=== PATIENT | female | born 1975 | race Caucasian/White ===

== ENCOUNTER 2016-06-30 10:37 | Emergency (ER) | payer OTHER ==
[~2016-06-30] VITALS: Ht 172.7 cm; Wt 121.1 kg
[~2016-06-30 10:37] MED LIST: /ONDA4TA; PRENATAL VITAMIN; TYLENOL #3
[2016-06-30] MEDS ORDERED: OMEP40CA2 PO (11:02)
[2016-06-30] MEDS ORDERED: methylPREDNISolone INJ 125 MG/2 ML VIAL (J2930) IM ONE (11:45)
[2016-06-30] MEDS ORDERED: VALI5TAB PO (12:11)
[2016-06-30] MEDS ORDERED: PRED20TA PO (12:11)
[2016-06-30 12:33] VITALS: BP 118/69
== END 2016-06-30 12:46 | disposition home or self-care (01) ==
LOC: M ED 11:17
DX: M54.12 Radiculopathy, cervical region (principal)
CPT/HCPCS: 96372; 99282; J2930; J3360

== ENCOUNTER → 2016-09-04 | Outpatient (REF) | payer OTHER ==
[~2016-09-04] MED LIST changes: +OMEP40CA2 PO; +PRED20TA PO; +VALI5TAB PO
== END ==
LOC: M SFHCPLAZ 10:47
PROVIDERS: ATTEND Physician Assistant Medical
DX: E55.9 Vitamin D deficiency, unspecified (principal)

== ENCOUNTER → 2016-09-12 | Outpatient (REF) | payer OTHER ==
[2016-09-12 12:27] LABS: BASO % 0.5 % (0.0-1.0); EOS # 0.4 K/mm3 (0.0-0.50); EOS % 4.2 % (0.0-3.0); LARGE UNSTAINED CELL # 0.1 K/mm3 (0.0-0.4); LARGE UNSTAINED CELL % 1.5 % (0.0-4.0); LYMPH # 1.9 K/mm3 (1.5-4.5); LYMPH % 20.5 % (24.0-44.0); MEAN CORPUSCULAR HGB CONC 30.8 g/dl (32.0-36.5); MEAN CORPUSCULAR VOLUME 87.6 fl (80.0-96.0); MONO # 0.5 K/mm3 (0.0-0.8); MONO % 5.7 % (0.0-5.0); NEUTROPHILS # 6.2 K/mm3 (1.8-7.7); NEUTROPHILS % 67.6 % (36.0-66.0); PLATELET COUNT, AUTOMATED 332 k/mm3 (150-450); RED CELL DISTRIBUTION WIDTH 14.9 % (11.5-14.5); WHITE BLOOD COUNT 9.2 K/mm3 (4.0-10.0)
[2016-09-12 12:53] LABS: ALBUMIN 3.4 GM/DL (3.2-5.2); ALBUMIN/GLOBULIN RATIO 1.17 (1.00-1.93); ALKALINE PHOSPHATASE 76 U/L (45-117); ALT/SGPT 25 U/L (12-78); ANION GAP 7 MEQ/L (8-16); AST/SGOT 16 U/L (15-37); BILIRUBIN,TOTAL 0.3 MG/DL (0.2-1.0); BLOOD UREA NITROGEN 12 MG/DL (7-18); CALCIUM LEVEL 8.8 MG/DL (8.5-10.1); CARBON DIOXIDE LEVEL 26 MEQ/L (21-32); CHLORIDE LEVEL 108 MEQ/L (98-107); CHOLESTEROL LEVEL 190 MG/DL (<200); CREATININE FOR GFR 0.77 MG/DL (0.55-1.02); FREE T4 0.85 NG/DL (0.76-1.46); GLOMERULAR FILTRATION RATE > 60.0 (>60); GLUCOSE, FASTING 84 MG/DL (70-105); POTASSIUM SERUM 4.2 MEQ/L (3.5-5.1); SODIUM LEVEL 141 MEQ/L (136-145); TOTAL PROTEIN 6.3 GM/DL (6.4-8.2); TRIGLYCERIDES LEVEL 117 MG/DL (<150)
== END ==
LOC: M SFHCPLAZ 10:22
PROVIDERS: ATTEND Nurse Practitioner Family
DX: Z00.00 Encounter for general adult medical examination without abnormal findings (principal); E66.9 Obesity, unspecified; Z13.220 Encounter for screening for lipoid disorders; E55.9 Vitamin D deficiency, unspecified

== ENCOUNTER → 2016-10-17 | Outpatient (REF) | payer OTHER ==
[2016-10-17 16:08] LABS: PERCENT SATURATION 9.9 % (13.2-37.4)
[2016-10-17 16:13] LABS: BASO % 0.3 % (0.0-1.0); EOS # 0.3 K/mm3 (0.0-0.50); EOS % 3.2 % (0.0-3.0); LARGE UNSTAINED CELL # 0.2 K/mm3 (0.0-0.4); LARGE UNSTAINED CELL % 1.8 % (0.0-4.0); LYMPH % 21.4 % (24.0-44.0); MEAN CORPUSCULAR HEMOGLOBIN 26.9 pg (27.0-33.0); MEAN CORPUSCULAR HGB CONC 30.3 g/dl (32.0-36.5); MEAN CORPUSCULAR VOLUME 88.6 fl (80.0-96.0); MONO # 0.5 K/mm3 (0.0-0.8); MONO % 5.5 % (0.0-5.0); NEUTROPHILS # 6.2 K/mm3 (1.8-7.7); NEUTROPHILS % 67.8 % (36.0-66.0); PLATELET COUNT, AUTOMATED 339 k/mm3 (150-450); WHITE BLOOD COUNT 9.2 K/mm3 (4.0-10.0)
== END ==
LOC: M SFHCPLAZ 11:01
PROVIDERS: ATTEND Nurse Practitioner Family
DX: D64.9 Anemia, unspecified (principal)

== ENCOUNTER → 2016-11-21 | Outpatient (REF) | payer OTHER ==
[2016-11-27 00:06] LABS: URINE NICOTINE LEVEL None Detected (.)
== END ==
LOC: M LAB REF 15:38
PROVIDERS: ATTEND Surgery
DX: F17.210 Nicotine dependence, cigarettes, uncomplicated (principal)

== ENCOUNTER → 2016-12-03 | Outpatient (REF) | payer OTHER | LOC: M SFHCWAGY 11:37 | PROVIDERS: ATTEND Nurse Practitioner Family | DX: A49.9 Bacterial infection, unspecified (principal) ==

== ENCOUNTER → 2016-12-13 | Outpatient (CLI) | payer OTHER ==
--- NOTE | 2016-12-14 14:29 | REP ---
Clinical: Menorrhagia. Technique: Transabdominal pelvic ultrasound followed by transvaginal examination for better evaluation of the endometrium and adnexa. Findings: Bladder is unremarkable and measures 7.2 x 4.8 x 4.1 cm. Heterogeneous, anteverted myomatous uterus measures 10.8 x 5.9 x 6.3 cm. The endometrial complex measures 12.5 mm thickness with Nabothian cysts measuring up to 12 mm. Anterior intramural fibroid measures 1.5 x 1.1 x 1.7 cm. Left anterior subserosal fibroid measures 2.8 x 2.2 x 3.5 cm. Two posterior intramural fibroids measure approximately 1.0 x 1.0 x 1.0 cm each. Posterior fundal intramural fibroid measures 2.7 x 1.3 x 2.5 cm. Bilateral ovaries are normal in appearance. Right ovary measures 2.6 x 2.1 x 2.9 cm. Left ovary measures 2.6 x 2.3 x 3.0 cm. No pelvic fluid or adnexal mass lesions. Impression: Heterogeneous myomatous uterus with multiple fibroids as described above measuring up to 3.5 cm as well as Nabothian cysts in the cervical region measuring up to 12 mm. Signed by Paco Gifford MD 12/13/2016 09:43 P
== END ==
LOC: M WHC 12:48
PROVIDERS: ATTEND Nurse Practitioner Family
DX: D25.9 Leiomyoma of uterus, unspecified (principal)

== ENCOUNTER → 2017-05-15 | Outpatient (CLI) | payer OTHER ==
[2017-05-15 12:04] LABS: BASO % 0.5 % (0.0-1.0); EOS # 0.4 10^3/uL (0.0-0.50); EOS % 4.9 % (0.0-3.0); HEMATOCRIT 36.7 % (36.0-47.0); HEMOGLOBIN 11.7 g/dl (12.0-16.0); IMMATURE GRANULOCYTE % 0.4 % (0-0); LYMPH # 2.1 10^3/uL (1.5-4.5); LYMPH % 27.7 % (24.0-44.0); MEAN CORPUSCULAR HEMOGLOBIN 29.8 pg (27.0-33.0); MEAN CORPUSCULAR HGB CONC 31.9 g/dl (32.0-36.5); MEAN CORPUSCULAR VOLUME 93.6 fl (80.0-96.0); MONO # 0.5 10^3/uL (0.0-0.8); MONO % 6.7 % (0.0-5.0); NEUTROPHILS # 4.5 10^3/uL (1.8-7.7); NEUTROPHILS % 59.8 % (36.0-66.0); PLATELET COUNT, AUTOMATED 404 10^3/uL (150-450); RED BLOOD COUNT 3.92 10^6/uL (4.00-5.40); RED CELL DISTRIBUTION WIDTH 13.3 % (11.5-14.5); WHITE BLOOD COUNT 7.5 10^3/uL (4.0-10.0)
[2017-05-15 12:07] LABS: HEMATOCRIT 36.7 % (36.0-47.0)
[2017-05-15 12:32] LABS: ALBUMIN 3.9 GM/DL (3.2-5.2); ALKALINE PHOSPHATASE 69 U/L (45-117); ALT/SGPT 28 U/L (12-78); ANION GAP 7 MEQ/L (8-16); AST/SGOT 22 U/L (7-37); BILIRUBIN,TOTAL 0.2 MG/DL (0.2-1.0); BLOOD UREA NITROGEN 8 MG/DL (7-18); CARBON DIOXIDE LEVEL 25 MEQ/L (21-32); CHLORIDE LEVEL 109 MEQ/L (98-107); CREATININE FOR GFR 0.78 MG/DL (0.55-1.30); FERRITIN 34 NG/ML (8-252); GLOMERULAR FILTRATION RATE > 60.0 (>58); GLUCOSE, FASTING 79 MG/DL (70-100); IRON (FE) 85 UG/DL (50-170); MAGNESIUM LEVEL 2.3 MG/DL (1.8-2.4); PERCENT SATURATION 24.4 % (13.2-45.0); POTASSIUM SERUM 4.3 MEQ/L (3.5-5.1); SODIUM LEVEL 141 MEQ/L (136-145); TOTAL IRON BINDING CAPACITY 348 UG/DL (250-450); TOTAL PROTEIN 6.9 GM/DL (6.4-8.2)
[2017-05-15 12:35] LABS: TOTAL 25(OH) VITAMIN D 17.7 NG/ML (30.0-100.0); VITAMIN B12 LEVEL 607 PG/ML (247-911)
[2017-05-15 12:49] LABS: ESTIMATED AVERAGE GLUCOSE 97 MG/DL (60-110)
[2017-05-17 12:50] LABS: PRETREATED FOLATE FOR RBCFOL 13.4 NG/ML; RBC FOLATE 766.8 NG/ML (280-791)
== END ==
LOC: M LAB 10:52
DX: K91.2 Postsurgical malabsorption, not elsewhere classified (principal); Z98.84 Bariatric surgery status
CPT/HCPCS: 83550

== ENCOUNTER 2017-08-10 03:16 | Emergency (ER) | payer OTHER ==
[2017-08-10] MEDS: ONDANSETRON 4MG/2ML VIAL (J2405) IV (05:09)
[2017-08-10] MEDS: NS 1,000 ML IV (05:09)
[2017-08-10] MEDS: MORPHINE 4 MG/ML 1ML VIAL/SYRINGE (J2270) IV ×3 (05:10→08:45)
[2017-08-10 05:13] LABS: BASO % 0.5 % (0.0-1.0); EOS # 0.3 10^3/uL (0.0-0.50); EOS % 4.2 % (0.0-3.0); HEMATOCRIT 36.5 % (36.0-47.0); HEMOGLOBIN 11.9 g/dl (12.0-15.5); IMMATURE GRANULOCYTE % 0.4 % (0-3.0); LYMPH # 2.5 10^3/uL (1.5-4.5); LYMPH % 31.2 % (24.0-44.0); MEAN CORPUSCULAR HEMOGLOBIN 29.3 pg (27.0-33.0); MEAN CORPUSCULAR HGB CONC 32.6 g/dl (32.0-36.5); MEAN CORPUSCULAR VOLUME 89.9 fl (80.0-96.0); MONO # 0.5 10^3/uL (0.0-0.8); MONO % 6.6 % (0.0-5.0); NEUTROPHILS # 4.7 10^3/uL (1.8-7.7); NEUTROPHILS % 57.1 % (36.0-66.0); PLATELET COUNT, AUTOMATED 254 10^3/uL (150-450); RED BLOOD COUNT 4.06 10^6/uL (4.00-5.40); RED CELL DISTRIBUTION WIDTH 14.6 % (11.5-14.5); WHITE BLOOD COUNT 8.2 10^3/uL (4.0-10.0)
[2017-08-10 05:23] LABS: CALCIUM OXALATE CRYSTALS RFX LARGE; CONTROL LINE HCG INT CTR LINE PRESENT; HCG, SERUM QUALITATIVE NEGATIVE (NEGATIVE); KETONE, URINE AUTO RFX 1+ mg/dL (NEGATIVE); LEUKOCYTE ESTERASE UR AUTO RFX 1+ (NEGATIVE); MUCUS, URINE RFX LARGE (NEGATIVE); NITRITE, URINE AUTO RFX NEGATIVE (NEGATIVE); RBC, URINE AUTO RFX 6 /HPF (0-3); SQUAM EPITHELIAL CELL UR AURFX 13 /HPF (0-6); WBC, URINE AUTO RFX 8 /HPF (0-3)
[2017-08-10 05:33] LABS: ALBUMIN 3.7 GM/DL (3.2-5.2); ALBUMIN/GLOBULIN RATIO 1.37 (1.00-1.93); ALKALINE PHOSPHATASE 56 U/L (45-117); ALT/SGPT 16 U/L (12-78); ANION GAP 7 MEQ/L (8-16); AST/SGOT 10 U/L (7-37); BILIRUBIN,DIRECT 0.1 MG/DL (0.0-0.2); BILIRUBIN,TOTAL 0.4 MG/DL (0.2-1.0); BLOOD UREA NITROGEN 10 MG/DL (7-18); CALCIUM LEVEL 8.8 MG/DL (8.5-10.1); CARBON DIOXIDE LEVEL 24 MEQ/L (21-32); CHLORIDE LEVEL 112 MEQ/L (98-107); CREATININE FOR GFR 0.69 MG/DL (0.55-1.30); GLOMERULAR FILTRATION RATE > 60.0 (>58); GLUCOSE, FASTING 84 MG/DL (70-100); LIPASE 107 U/L (73-393); SODIUM LEVEL 143 MEQ/L (136-145); TOTAL PROTEIN 6.4 GM/DL (6.4-8.2)
[2017-08-10] MEDS ORDERED: GASTROGRAFIN SOLUTION 30ML (Q9963) As Ordered (07:25)
[2017-08-10] MEDS: GASTROGRAFIN SOLUTION 30ML PO ×2 (07:30→08:00)
[2017-08-10] MEDS ORDERED: ISOVUE-370 76% 100ML VIAL (Q9967) As Ordered (08:15)
== END 2017-08-10 11:01 | disposition home or self-care (01) ==
LOC: M ED 03:16
DX: R10.9 Unspecified abdominal pain (principal); G62.9 Polyneuropathy, unspecified; Z98.84 Bariatric surgery status; Z79.899 Other long term (current) drug therapy; Z88.0 Allergy status to penicillin
CPT/HCPCS: J2270

== ENCOUNTER 2017-09-17 09:08 | Emergency (ER) | payer OTHER ==
[2017-09-17] MEDS: MORPHINE 4 MG/ML 1ML VIAL/SYRINGE (J2270) IV (09:57)
[2017-09-17] MEDS: METOCLOPRAMIDE INJ 10MG/2ML VIAL (J2765) IV (09:57)
[2017-09-17] MEDS: NS 1,000 ML IV (09:57)
[2017-09-17 10:18] LABS: BASO % 0.4 % (0.0-1.0); EOS # 0.2 10^3/uL (0.0-0.50); EOS % 2.4 % (0.0-3.0); HEMATOCRIT 37.5 % (36.0-47.0); HEMOGLOBIN 12.4 g/dl (12.0-15.5); IMMATURE GRANULOCYTE % 0.1 % (0-3.0); LYMPH % 26.9 % (24.0-44.0); MEAN CORPUSCULAR HEMOGLOBIN 30.2 pg (27.0-33.0); MEAN CORPUSCULAR HGB CONC 33.1 g/dl (32.0-36.5); MEAN CORPUSCULAR VOLUME 91.2 fl (80.0-96.0); MONO # 0.5 10^3/uL (0.0-0.8); MONO % 7.1 % (0.0-5.0); NEUTROPHILS # 4.8 10^3/uL (1.8-7.7); NEUTROPHILS % 63.1 % (36.0-66.0); PLATELET COUNT, AUTOMATED 279 10^3/uL (150-450); RED BLOOD COUNT 4.11 10^6/uL (4.00-5.40); RED CELL DISTRIBUTION WIDTH 15.1 % (11.5-14.5); WHITE BLOOD COUNT 7.6 10^3/uL (4.0-10.0)
[2017-09-17 10:33] LABS: ALBUMIN 3.7 GM/DL (3.2-5.2); ALBUMIN/GLOBULIN RATIO 1.16 (1.00-1.93); ALKALINE PHOSPHATASE 60 U/L (45-117); ALT/SGPT 19 U/L (12-78); AMYLASE 39 U/L (25-115); ANION GAP 6 MEQ/L (8-16); AST/SGOT 11 U/L (7-37); BILIRUBIN,DIRECT < 0.1 MG/DL (0.0-0.2); BILIRUBIN,TOTAL 0.5 MG/DL (0.2-1.0); BLOOD UREA NITROGEN 5 MG/DL (7-18); CALCIUM LEVEL 8.9 MG/DL (8.5-10.1); CARBON DIOXIDE LEVEL 26 MEQ/L (21-32); CHLORIDE LEVEL 110 MEQ/L (98-107); CREATININE FOR GFR 0.67 MG/DL (0.55-1.30); GLOMERULAR FILTRATION RATE > 60.0 (>58); GLUCOSE, FASTING 80 MG/DL (70-100); LIPASE 82 U/L (73-393); POTASSIUM SERUM 3.9 MEQ/L (3.5-5.1); SODIUM LEVEL 142 MEQ/L (136-145); TOTAL PROTEIN 6.9 GM/DL (6.4-8.2)
[2017-09-17 10:38] LABS: LACTIC ACID SEPSIS PROTOCOL 0.8 MMOL/L (0.4-2.0)
[2017-09-17] MEDS: PANTOPRAZOLE 40MG INJ (PROTONIX) (C9113) IV (11:00)
[2017-09-17] MEDS: GASTROGRAFIN SOLUTION 30ML PO ×2 (11:20→11:50)
[2017-09-17] MEDS ORDERED: ISOVUE-370 76% 100ML VIAL (Q9967) As Ordered (12:44)
== END 2017-09-17 13:57 | disposition home or self-care (01) ==
LOC: M ED 09:08
DX: K42.9 Umbilical hernia without obstruction or gangrene (principal); K21.9 Gastro-esophageal reflux disease without esophagitis; Z98.84 Bariatric surgery status; Z88.0 Allergy status to penicillin; F17.210 Nicotine dependence, cigarettes, uncomplicated
CPT/HCPCS: C9113

== ENCOUNTER 2018-01-06 16:02 | Emergency (ER) | payer OTHER ==
[2018-01-06] MEDS: NS 1,000 ML IV (16:33)
[2018-01-06] MEDS: ONDANSETRON 4MG/2ML VIAL (J2405) IV (16:33)
[2018-01-06] MEDS: MORPHINE 4 MG/ML 1ML VIAL/SYRINGE (J2270) IV ×2 (16:34→18:08)
[2018-01-06] MEDS: PANTOPRAZOLE 40MG INJ (PROTONIX) (C9113) IV (16:46)
[2018-01-06 16:53] LABS: BASO # 0.1 10^3/uL (0.0-0.2); BASO % 0.6 % (0.0-1.0); EOS # 0.3 10^3/uL (0.0-0.50); EOS % 3.3 % (0.0-3.0); HEMATOCRIT 33.8 % (36.0-47.0); IMMATURE GRANULOCYTE % 0.4 % (0-3.0); LYMPH # 3.2 10^3/uL (1.5-4.5); MEAN CORPUSCULAR HEMOGLOBIN 30.8 pg (27.0-33.0); MEAN CORPUSCULAR HGB CONC 32.5 g/dl (32.0-36.5); MEAN CORPUSCULAR VOLUME 94.7 fl (80.0-96.0); MONO # 0.6 10^3/uL (0.0-0.8); MONO % 8.1 % (0.0-5.0); NEUTROPHILS # 3.6 10^3/uL (1.8-7.7); NEUTROPHILS % 46.6 % (36.0-66.0); PLATELET COUNT, AUTOMATED 297 10^3/uL (150-450); RED BLOOD COUNT 3.57 10^6/uL (4.00-5.40); RED CELL DISTRIBUTION WIDTH 13.2 % (11.5-14.5); WHITE BLOOD COUNT 7.8 10^3/uL (4.0-10.0)
[2018-01-06 17:07] LABS: INR 1.06; PROTHROMBIN TIME 13.9 SECONDS (12.1-14.4)
[2018-01-06 17:08] LABS: PARTIAL THROMBOPLASTIN TIME 33.2 SECONDS (25.4-37.6)
[2018-01-06 17:10] LABS: CONTROL LINE HCG INT CTR LINE PRESENT; HCG, SERUM QUALITATIVE NEGATIVE (NEGATIVE)
[2018-01-06] MEDS: GASTROGRAFIN SOLUTION 30ML PO ×2 (17:18→17:39)
[2018-01-06 17:19] LABS: LACTIC ACID SEPSIS PROTOCOL 0.8 MMOL/L (0.4-2.0)
[2018-01-06 17:19] LABS: ALBUMIN 3.7 GM/DL (3.2-5.2); ALBUMIN/GLOBULIN RATIO 1.37 (1.00-1.93); ALKALINE PHOSPHATASE 61 U/L (45-117); ALT/SGPT 12 U/L (12-78); AMYLASE 41 U/L (25-115); ANION GAP 7 MEQ/L (8-16); AST/SGOT 14 U/L (7-37); BILIRUBIN,DIRECT 0.2 MG/DL (0.0-0.2); BILIRUBIN,TOTAL 0.5 MG/DL (0.2-1.0); BLOOD UREA NITROGEN 9 MG/DL (7-18); CALCIUM LEVEL 9.2 MG/DL (8.5-10.1); CARBON DIOXIDE LEVEL 26 MEQ/L (21-32); CHLORIDE LEVEL 110 MEQ/L (98-107); CREATININE FOR GFR 0.62 MG/DL (0.55-1.30); GLOMERULAR FILTRATION RATE > 60.0 (>58); GLUCOSE, FASTING 77 MG/DL (70-100); LIPASE 90 U/L (73-393); POTASSIUM SERUM 4.2 MEQ/L (3.5-5.1); SODIUM LEVEL 143 MEQ/L (136-145); TOTAL PROTEIN 6.4 GM/DL (6.4-8.2)
[2018-01-06] MEDS ORDERED: ISOVUE-370 76% 100ML VIAL (Q9967) As Ordered (18:01)
[2018-01-06] MEDS: DICYCLOMINE 10 MG CAP PO (19:22)
== END 2018-01-06 19:35 | disposition home or self-care (01) ==
LOC: M ED 16:02
DX: K43.9 Ventral hernia without obstruction or gangrene (principal)
CPT/HCPCS: C9113

== ENCOUNTER 2018-02-02 10:47 | Emergency (ER) | payer SELFPAY, OTHER ==
[2018-02-02 10:53] LABS: BEDSIDE GLUCOSE 67 MG/DL (70-105)
[2018-02-02 10:56] LABS: BEDSIDE GLUCOSE 75 MG/DL (70-105)
[2018-02-02] MEDS: NALOXONE INJ 0.4 MG/1 ML VIAL (J2310) IV (11:00)
[2018-02-02 11:04] LABS: BASO % 0.6 % (0.0-1.0); EOS # 0.2 10^3/uL (0.0-0.50); EOS % 3.1 % (0.0-3.0); HEMATOCRIT 35.9 % (36.0-47.0); HEMOGLOBIN 11.7 g/dl (12.0-15.5); IMMATURE GRANULOCYTE % 0.3 % (0-3.0); LYMPH # 2.6 10^3/uL (1.5-4.5); LYMPH % 35.9 % (24.0-44.0); MEAN CORPUSCULAR HEMOGLOBIN 30.6 pg (27.0-33.0); MEAN CORPUSCULAR HGB CONC 32.6 g/dl (32.0-36.5); MONO # 0.5 10^3/uL (0.0-0.8); MONO % 7.3 % (0.0-5.0); NEUTROPHILS # 3.8 10^3/uL (1.8-7.7); NEUTROPHILS % 52.8 % (36.0-66.0); PLATELET COUNT, AUTOMATED 302 10^3/uL (150-450); RED BLOOD COUNT 3.82 10^6/uL (4.00-5.40); RED CELL DISTRIBUTION WIDTH 13.6 % (11.5-14.5); WHITE BLOOD COUNT 7.2 10^3/uL (4.0-10.0)
[2018-02-02 11:18] LABS: CONTROL LINE HCG INT CTR LINE PRESENT; HCG, SERUM QUALITATIVE NEGATIVE (NEGATIVE)
[2018-02-02] MEDS ORDERED: AMMONIA AROMATIC INHALANT (FLOOR STOCK) As Ordered (11:18)
[2018-02-02 11:20] LABS: ABG BASE EXCESS -2.7 (-2.0-2.0); ABG HCO3 21.2 MEQ/L (22.0-26.0); ABG O2 SATURATION 97.1 % (95.0-99.0); ABG PARTIAL PRESSURE CO2 33.6 mmHg (35.0-45.0); ABG PARTIAL PRESSURE O2 90.5 mmHg (75.0-100.0); ABG STANDARD HCO3 22.2 MEQ/L (22.0-26.0); ABG TOTAL CO2 22.2 MEQ/L (22.0-29.0); ABG pH (ARTERIAL) 7.417 UNITS (7.350-7.450)
[2018-02-02 11:22] LABS: AMMONIA < 10 uMOL/L (<32)
[2018-02-02 11:31] LABS: ACETAMINOPHEN LEVEL < 2.0 UG/ML (10.0-30.0); ALBUMIN 3.9 GM/DL (3.2-5.2); ALBUMIN/GLOBULIN RATIO 1.22 (1.00-1.93); ALKALINE PHOSPHATASE 82 U/L (45-117); ALT/SGPT 18 U/L (12-78); ANION GAP 11 MEQ/L (8-16); AST/SGOT 17 U/L (7-37); BILIRUBIN,DIRECT 0.2 MG/DL (0.0-0.2); BILIRUBIN,TOTAL 0.6 MG/DL (0.2-1.0); BLOOD UREA NITROGEN 11 MG/DL (7-18); CALCIUM LEVEL 8.7 MG/DL (8.5-10.1); CARBON DIOXIDE LEVEL 23 MEQ/L (21-32); CHLORIDE LEVEL 110 MEQ/L (98-107); CPK CREATINE PHOSPHOKINASE 85 U/L (26-192); CREATININE FOR GFR 0.78 MG/DL (0.55-1.30); ETHYL ALCOHOL (ETHANOL) < 0.003 % (0.000-0.010); GLOMERULAR FILTRATION RATE > 60.0 (>58); GLUCOSE, FASTING 76 MG/DL (70-100); MB/CK RELATIVE INDEX 1.29 (< OR =4); POTASSIUM SERUM 4.2 MEQ/L (3.5-5.1); SODIUM LEVEL 144 MEQ/L (136-145); TOTAL PROTEIN 7.1 GM/DL (6.4-8.2); TROPONIN I < 0.02 NG/ML (< 0.10)
[2018-02-02 12:13] LABS: AMPHETAMINES LEVEL URINE NEGATIVE (NEGATIVE); BARBITURATES URINE NEGATIVE (NEGATIVE); BENZODIAZEPINES URINE NEGATIVE (NEGATIVE); CANNABINOIDS URINE POSITIVE (NEGATIVE); COCAINE METABOLITE URINE NEGATIVE (NEGATIVE); METHADONE URINE NEGATIVE (NEGATIVE); OPIATES URINE NEGATIVE (NEGATIVE); PHENCYCLIDINE URINE NEGATIVE (NEGATIVE)
[2018-02-02] MEDS: NS 1,000 ML IV (12:58)
[2018-02-02] MEDS: MULTIVITAMIN -ADULT INJECTION 10 ML, THIAMINE INJection 100 MG, FOLIC ACID 1 MG in NS 1... IV (13:57)
[2018-02-02] MEDS: ACETAMINOPHEN TAB 650MG DOSE (2X325MG) PO (14:37)
== END 2018-02-02 16:22 | disposition home or self-care (01) ==
LOC: M ED 10:47
DX: R41.82 Altered mental status, unspecified (principal); K21.9 Gastro-esophageal reflux disease without esophagitis; Z98.84 Bariatric surgery status; Z79.899 Other long term (current) drug therapy; Z88.0 Allergy status to penicillin; F17.210 Nicotine dependence, cigarettes, uncomplicated
CPT/HCPCS: J2310

== ENCOUNTER → 2018-05-28 | Outpatient (REF) | payer OTHER ==
[~2018-05-28] MED LIST changes: +BENT10CA PO; +CALC600T60 PO; +D3-5CAP PO; +DICY10CA13 PO; +FAMO1TAB11; +FERR1TAB8 PO; +MISO200T56 PO; +MULT1TAB10 PO; +NEUR300C PO; +PANT40TA3 PO; +VITA100072 PO
[2018-05-28 15:41] LABS: HEMATOCRIT 29.3 % (36.0-47.0); HEMOGLOBIN 9.1 g/dl (12.0-15.5); MEAN CORPUSCULAR HEMOGLOBIN 27.2 pg (27.0-33.0); MEAN CORPUSCULAR HGB CONC 31.1 g/dl (32.0-36.5); MEAN CORPUSCULAR VOLUME 87.7 fl (80.0-96.0); PLATELET COUNT, AUTOMATED 378 10^3/uL (150-450); RED BLOOD COUNT 3.34 10^6/uL (4.00-5.40)
[2018-05-28 15:52] LABS: ALBUMIN 3.8 GM/DL (3.2-5.2); ALT/SGPT 23 U/L (12-78); BILIRUBIN,TOTAL 0.2 MG/DL (0.2-1.0); BLOOD UREA NITROGEN 7 MG/DL (7-18); CALCIUM LEVEL 9.1 MG/DL (8.5-10.1); CARBON DIOXIDE LEVEL 26 MEQ/L (21-32); CHLORIDE LEVEL 105 MEQ/L (98-107); CHOLESTEROL LEVEL 187 MG/DL (<200); CHOLESTEROL RISK RATIO 2.671 (<5); CREATININE FOR GFR 0.62 MG/DL (0.55-1.30); FERRITIN 4 NG/ML (8-252); GLOMERULAR FILTRATION RATE > 60.0 (>58); GLUCOSE, FASTING 80 MG/DL (70-100); HDL CHOLESTEROL 70 MG/DL (>40); IRON (FE) 14 UG/DL (50-170); LDL CHOLESTEROL 91 MG/DL (<100); NON-HDL-C 117 MG/DL; PERCENT SATURATION 2.9 % (13.2-45.0); POTASSIUM SERUM 4.2 MEQ/L (3.5-5.1); SODIUM LEVEL 139 MEQ/L (136-145); TOTAL IRON BINDING CAPACITY 481 UG/DL (250-450); TOTAL PROTEIN 6.5 GM/DL (6.4-8.2); TRIGLYCERIDES LEVEL 128 MG/DL (<150)
[2018-05-28 15:55] LABS: TOTAL 25(OH) VITAMIN D 22.9 NG/ML (30.0-100.0)
[2018-05-28 17:23] LABS: VITAMIN B12 LEVEL 293 PG/ML
== END ==
LOC: M SFHCPLAZ 13:46
PROVIDERS: ATTEND Nurse Practitioner Family
DX: Z00.00 Encounter for general adult medical examination without abnormal findings (principal); K14.6 Glossodynia; F41.9 Anxiety disorder, unspecified; Z98.84 Bariatric surgery status; Z13.220 Encounter for screening for lipoid disorders; E55.9 Vitamin D deficiency, unspecified

== ENCOUNTER 2018-06-13 11:28 | Outpatient (CLI) | payer OTHER ==
[~2018-06-13] VITALS: Ht 162.6 cm; Wt 68.0 kg
[2018-06-13 11:35] VITALS: BP 132/59
[2018-06-13] MEDS ORDERED: IRON SUCROSE 200 MG in NS 250 ML IV ONE (12:00)
[2018-06-13 12:15] VITALS: BP 111/61
[2018-06-13 13:15] VITALS: BP 103/49
[2018-06-13 14:32] VITALS: BP 96/53
== END 2018-06-13 14:35 | disposition home or self-care (01) ==
LOC: M INFU 11:28
PROVIDERS: ATTEND Nurse Practitioner Family
DX: D50.0 Iron deficiency anemia secondary to blood loss (chronic) (principal); Z88.0 Allergy status to penicillin
CPT/HCPCS: 96365; 96366; J1756

== ENCOUNTER 2018-06-16 13:28 | Emergency (ER) | payer OTHER ==
[~2018-06-16] VITALS: Ht 170.2 cm; Wt 73.6 kg
[2018-06-16] MEDS ORDERED: ONDANSETRON 4MG/2ML VIAL (J2405) IV ONE (14:30)
[2018-06-16] MEDS ORDERED: KETOROLAC 30 MG/ML VIAL (J1885) IV ONE (14:30)
[2018-06-16 14:37] LABS: BASO # 0.1 10^3/uL (0.0-0.2); BASO % 0.4 % (0.0-1.0); EOS # 0.2 10^3/uL (0.0-0.50); EOS % 1.5 % (0.0-3.0); HEMATOCRIT 33.3 % (36.0-47.0); HEMOGLOBIN 9.9 g/dl (12.0-15.5); LYMPH % 32.3 % (24.0-44.0); MEAN CORPUSCULAR HEMOGLOBIN 26.8 pg (27.0-33.0); MEAN CORPUSCULAR HGB CONC 29.7 g/dl (32.0-36.5); MONO # 0.8 10^3/uL (0.0-0.8); MONO % 6.2 % (0.0-5.0); NEUTROPHILS # 7.3 10^3/uL (1.8-7.7); NEUTROPHILS % 59.3 % (36.0-66.0); PLATELET COUNT, AUTOMATED 399 10^3/uL (150-450); WHITE BLOOD COUNT 12.4 10^3/uL (4.0-10.0)
[2018-06-16 14:51] LABS: ALBUMIN 3.8 GM/DL (3.2-5.2); ALT/SGPT 20 U/L (12-78); BILIRUBIN,DIRECT 0.1 MG/DL (0.0-0.2); BILIRUBIN,TOTAL 0.3 MG/DL (0.2-1.0); BLOOD UREA NITROGEN 11 MG/DL (7-18); CALCIUM LEVEL 8.9 MG/DL (8.5-10.1); CARBON DIOXIDE LEVEL 26 MEQ/L (21-32); CHLORIDE LEVEL 108 MEQ/L (98-107); CREATININE FOR GFR 0.74 MG/DL (0.55-1.30); GLOMERULAR FILTRATION RATE > 60.0 (>58); GLUCOSE, FASTING 69 MG/DL (70-100); LIPASE 90 U/L (73-393); POTASSIUM SERUM 3.2 MEQ/L (3.5-5.1); SODIUM LEVEL 142 MEQ/L (136-145)
[2018-06-16 14:53] LABS: HCG, SERUM QUALITATIVE NEGATIVE (NEGATIVE)
[2018-06-16] MEDS ORDERED: ISOVUE-370 76% 100ML VIAL (Q9967) As Ordered ONE (14:58)
[2018-06-16] MEDS: MORPHINE 4 MG/ML 1ML VIAL/SYRINGE (J2270) IV PRN ×4 (15:00→17:29)
--- NOTE | 2018-06-16 15:48 | REP ---
CT ANGIOGRAM ABDOMEN: CT angiogram abdomen performed following the intravenous administration of 100 mL of Isovue 370. Sagittal and coronal reconstruction images are performed. Abdominal aorta is normal in caliber with no aneurysm or dissection. Mesenteric arteries are widely patent. Renal arteries are widely patent. Liver, spleen, adrenals, pancreas, and kidneys appear unremarkable. I see no adenopathy. No free fluid or free air is seen. Patient has had prior gastric surgery. IMPRESSION: No evidence of abdominal aortic aneurysm or dissection. Electronically Signed by Mike Knott MD 06/17/2018 10:21 A
[2018-06-16 15:59] LABS: MAGNESIUM LEVEL 2.3 MG/DL (1.8-2.4)
--- NOTE | 2018-06-16 16:24 | REP ---
CT ABDOMEN AND PELVIS WITHOUT CONTRAST: CT abdomen and pelvis was performed without oral or IV contrast. Sagittal and coronal reconstruction images are performed. The visualized lung bases are clear. The liver, spleen, adrenals, pancreas and kidneys are grossly unremarkable. I see no renal, ureteral or bladder calculus. There is no hydroureter nephrosis. No bladder calculus is seen. Tiny phleboliths are seen in the pelvis. There is no abdominal aortic aneurysm. No adenopathy is seen. I see no free air or free fluid. The patient has had prior gastric surgery. Multiple mildly dilated bowel loops diffusely may represent a generalized ileus. There is again a small ventral hernia containing fat in the supraumbilical abdominal wall in the midline, unchanged since prior study of 01/06/2018. I see no gross pelvic mass. IMPRESSION: No renal, ureteral or bladder calculus and no hydroureteronephrosis. Multiple mildly dilated small bowel loops diffusely may represent a generalized ileus. Small ventral hernia containing fat is unchanged since 01/06/2018. No other evidence of acute finding. Electronically Signed by Mike Knott MD 06/17/2018 10:26 A
[2018-06-16 17:05] VITALS: BP 110/72
[2018-06-16] MEDS ORDERED: PERC5TAB12 PO (17:51)
[2018-06-16] MEDS ORDERED: K-TA10TA2 PO (17:51)
[2018-06-16] MEDS ORDERED: COLA100C5 PO (17:51)
[2018-06-16] MEDS ORDERED: BACT800T5 PO (18:00)
[2018-06-16 20:04] LABS: CHLAMYDIA DNA AMPLIFICATION NEGATIVE (NEGATIVE); GC DNA AMPLIFICATION NEGATIVE (NEGATIVE)
== END 2018-06-16 18:08 | disposition home or self-care (01) ==
LOC: M ED 13:28
DX: N39.0 Urinary tract infection, site not specified (principal); N85.9 Noninflammatory disorder of uterus, unspecified; D64.9 Anemia, unspecified; R10.31 Right lower quadrant pain; R10.32 Left lower quadrant pain; R11.0 Nausea; Z98.84 Bariatric surgery status; Z88.0 Allergy status to penicillin; Z79.899 Other long term (current) drug therapy
CPT/HCPCS: 74175; 74176; 80048; 80076; 81001; 83690; 83735; 84703; 85025; 87086; 87491; 87591; 96374; 96375; 96376; 99284; J1885; J2270; J2405; Q9967

== ENCOUNTER 2018-06-20 09:27 | Outpatient (CLI) | payer OTHER ==
[~2018-06-20] VITALS: Ht 160 cm; Wt 68.0 kg
[~2018-06-20 09:27] MED LIST changes: +BACT800T5 PO; +COLA100C5 PO; +K-TA10TA2 PO; +PERC5TAB12 PO
[2018-06-20 09:39] VITALS: BP 101/51
[2018-06-20] MEDS ORDERED: IRON SUCROSE 200 MG in NS 250 ML IV ONE (10:00)
[2018-06-20 11:57] VITALS: BP 99/57
[2018-06-20 12:20] VITALS: BP 104/60
== END 2018-06-20 12:20 | disposition home or self-care (01) ==
LOC: M INFU 09:27
PROVIDERS: ATTEND Nurse Practitioner Family
DX: D50.0 Iron deficiency anemia secondary to blood loss (chronic) (principal); Z88.0 Allergy status to penicillin
CPT/HCPCS: 96365; 96366; J1756

== ENCOUNTER → 2018-07-22 | Outpatient (REF) | payer OTHER ==
[~2018-07-22] MED LIST changes: -/ONDA4TA; +ONDA-1; +VITA100018 PO; -VITA100072 PO
[2018-07-22 10:33] LABS: HEMOGLOBIN 11.1 g/dl (12.0-15.5); MEAN CORPUSCULAR HGB CONC 30.8 g/dl (32.0-36.5); PLATELET COUNT, AUTOMATED 308 10^3/uL (150-450); RED BLOOD COUNT 3.83 10^6/uL (4.00-5.40); WHITE BLOOD COUNT 5.1 10^3/uL (4.0-10.0)
[2018-07-22 11:00] LABS: PERCENT SATURATION 20.2 % (13.2-45.0)
== END ==
LOC: M SFHCPLAZ 08:20
PROVIDERS: ATTEND Nurse Practitioner Family
DX: D50.0 Iron deficiency anemia secondary to blood loss (chronic) (principal)

== ENCOUNTER → 2018-10-07 | Outpatient (REF) | payer OTHER ==
[2018-10-09 14:24] LABS: HPV HYBRID CAPTURE II Negative (Negative)
== END ==
LOC: M SFHCWAGY 10:18
PROVIDERS: ATTEND Nurse Practitioner Family
DX: Z12.4 Encounter for screening for malignant neoplasm of cervix (principal)

== ENCOUNTER → 2018-10-07 | Outpatient (CLI) | payer OTHER ==
--- NOTE | 2018-10-07 12:01 | REPMRS ---
Patient History The patient states she had a clinical breast exam in 09/2018. No known family history of cancer. No Hormone Replacement Therapy Digital Woman Screen Mammo: October 07, 2018 - Exam #: [id number] Bilateral CC and MLO view(s) were taken. Technologist: Sneha Cohen, Technologist Prior study comparison: February 14, 2017, digital woman screen mammo performed at [facility]. FINDINGS: There are scattered fibroglandular densities. Bilateral screening digital mammogram with tomosynthesis: The patient states that there are no palpable abnormalities or other breast complaints. The patient's Tyrer-Cuzieck Lifetime Breast Carcinoma Risk is: 904%. There is no interval development of dominant mass, areas of architectural distortion, or clustered microcalcification typical of malignancy. There are no additional findings on tomosynthesis. This mammogram is interpreted with the aid of an FDA approved computer-aided detection system. Not all cancers are identified by mammography. Negative mammogram reports should not delay biopsy if a dominant or clinically suspicious mass is present. Adenosis and dense breasts may obscure an underlying neoplasm. No significant changes when compared with prior studies. Assessment: BI-RADS/ACR category 1 mammogram. Negative Mammogram. Recommendation Routine screening mammogram in 1 year (for women over age 40). This mammogram was interpreted with the aid of an FDA-approved computer-aided dectection system. A. Negative x-ray reports should not delay biopsy if a dominant or clinically suspicious mass is present. B. Not all cancers are identified by mammography. C. Adenosis and dense breast may obscure an underlying neoplasm. Electronically Signed By: Mike Gotti M.D. 10/07/18 [id number]
== END ==
LOC: M WHC 09:40
PROVIDERS: ATTEND Nurse Practitioner Family
DX: Z12.31 Encounter for screening mammogram for malignant neoplasm of breast (principal)

== ENCOUNTER → 2018-10-19 | Outpatient (REF) | payer OTHER ==
[2018-10-19 22:43] LABS: APPEARANCE, URINE CLOUDY (CLEAR); BACTERIA, URINE AUTO NEGATIVE (NEGATIVE); BILIRUBIN, URINE AUTO NEGATIVE (NEGATIVE); BLOOD, URINE BLOOD NEGATIVE (NEGATIVE); COLOR, URINE YELLOW (YELLOW); GLUCOSE, URINE (UA) AUTO NEGATIVE (NEGATIVE); KETONE, URINE AUTO NEGATIVE (NEGATIVE); LEUKOCYTE ESTERASE, URINE AUTO TRACE (NEGATIVE); MUCUS, URINE SMALL (NEGATIVE); NITRITE, URINE AUTO NEGATIVE (NEGATIVE); PROTEIN, URINE AUTO NEGATIVE (NEGATIVE); RBC, URINE AUTO 1 /HPF (0-3); SPECIFIC GRAVITY URINE AUTO 1.023 (1.002-1.035); SQUAMOUS EPITHELIAL CELL UR AU 14 /HPF (0-6); WBC, URINE AUTO 6 /HPF (0-3)
== END ==
LOC: M LAB REF 09:08
PROVIDERS: ATTEND Physician Assistant Medical
DX: N39.0 Urinary tract infection, site not specified (principal)

== ENCOUNTER → 2018-10-20 | Outpatient (REF) | payer OTHER | LOC: M SFHCPLAZ 08:36 | PROVIDERS: ATTEND Nurse Practitioner Family | DX: D50.0 Iron deficiency anemia secondary to blood loss (chronic) (principal); Z53.9 Procedure and treatment not carried out, unspecified reason ==

== ENCOUNTER → 2019-04-24 | Outpatient (REF) | payer OTHER ==
[~2019-04-24] MED LIST changes: -OMEP40CA2 PO; +OMEP40CA97 PO
[2019-04-24 12:00] LABS: HEMOGLOBIN 11.9 g/dl (12.0-15.5); MEAN CORPUSCULAR HEMOGLOBIN 30.2 pg (27.0-33.0); MEAN CORPUSCULAR HGB CONC 31.3 g/dl (32.0-36.5); MEAN CORPUSCULAR VOLUME 96.4 fl (80.0-96.0); PLATELET COUNT, AUTOMATED 297 10^3/uL (150-450); RED BLOOD COUNT 3.94 10^6/uL (4.00-5.40); WHITE BLOOD COUNT 7.6 10^3/uL (4.0-10.0)
[2019-04-24 12:11] LABS: ALBUMIN 3.8 GM/DL (3.2-5.2); ALT/SGPT 14 U/L (12-78); BILIRUBIN,TOTAL 0.5 MG/DL (0.2-1.0); BLOOD UREA NITROGEN 12 MG/DL (7-18); CALCIUM LEVEL 9.1 MG/DL (8.5-10.1); CARBON DIOXIDE LEVEL 23 MEQ/L (21-32); CHLORIDE LEVEL 110 MEQ/L (98-107); CHOLESTEROL LEVEL 184 MG/DL (<200); CHOLESTEROL RISK RATIO 2.628 (<5); CREATININE FOR GFR 0.79 MG/DL (0.55-1.30); FERRITIN 7 NG/ML (8-252); GLOMERULAR FILTRATION RATE > 60.0 (>58); GLUCOSE, FASTING 73 MG/DL (70-100); HDL CHOLESTEROL 70 MG/DL (>40); IRON (FE) 134 UG/DL (50-170); LDL CHOLESTEROL 95 MG/DL (<100); MAGNESIUM LEVEL 1.9 MG/DL (1.8-2.4); NON-HDL-C 114 MG/DL; PERCENT SATURATION 29.6 % (13.2-45.0); PHOSPHORUS LEVEL 3.3 MG/DL (2.5-4.9); POTASSIUM SERUM 4.3 MEQ/L (3.5-5.1); SODIUM LEVEL 139 MEQ/L (136-145); TOTAL IRON BINDING CAPACITY 453 UG/DL (250-450); TOTAL PROTEIN 6.8 GM/DL (6.4-8.2); TRIGLYCERIDES LEVEL 96 MG/DL (<150)
[2019-04-24 12:30] LABS: HEMOGLOBIN A1c 5.1 %
[2019-04-24 16:06] LABS: TOTAL 25(OH) VITAMIN D 30.4 NG/ML (30.0-100.0); VITAMIN B12 LEVEL 270 PG/ML
[2019-04-24 16:07] LABS: FOLATE 6.5 NG/ML
== END ==
LOC: M SFHCPLAZ 09:50
PROVIDERS: ATTEND Physician Assistant
DX: D50.0 Iron deficiency anemia secondary to blood loss (chronic) (principal); R53.1 Weakness; Z13.1 Encounter for screening for diabetes mellitus; Z13.220 Encounter for screening for lipoid disorders; Z98.84 Bariatric surgery status

== ENCOUNTER → 2019-04-27 | Outpatient (CLI) | payer OTHER ==
--- NOTE | 2019-04-27 09:40 | REP ---
INDICATION: Thoracic spine pain. PROCEDURE: Plain film cervical spine includes AP and lateral views COMPARISON STUDIES: No prior similar studies FINDINGS: No evidence of fracture or malalignment. Prevertebral soft tissues appear within normal limits. No significant degenerative changes. CONCLUSION: No acute findings. Normal examination. Electronically Signed by Rene Ross MD 04/27/2019 09:31 A
--- NOTE | 2019-04-27 09:48 | REP ---
INDICATION: Thoracic spine pain PROCEDURE: Plain film study of the thoracic spine with PA and lateral views. COMPARISON STUDIES: No prior similar studies FINDINGS: No evidence of fracture or malalignment. Vertebral heights and disc heights appear preserved. Bone density appears within normal limits. CONCLUSION: No acute findings. Normal examination. Electronically Signed by Rene Ross MD 04/27/2019 09:39 A
== END ==
LOC: M RAD 08:40
PROVIDERS: ATTEND Physician Assistant
DX: M54.6 Pain in thoracic spine (principal)

== ENCOUNTER → 2019-05-07 | Outpatient (CLI) | payer OTHER ==
--- NOTE | 2019-05-08 06:24 | EEG ---
DATE OF PROCEDURE: 05/07/2019 REFERRING PHYSICIAN: Lori Pantoja PA-C DIAGNOSIS: Weakness, blanking out and unresponsiveness. EEG #: 20-12 HISTORY: The patient is a 43-year-old woman who started having episodes of blanking out and becoming unresponsive since she had bypass surgery. This EEG was done to rule out epileptic potential. She is currently taking Protonix and ferrous sulfate. TECHNICAL DESCRIPTION: This digital EEG was recorded by 21 scalp, ear and two EKG electrodes and was reviewed in bipolar and referential montages following reformatting in 10-20 international electrode placement system. INTERPRETATION: The patient was noted to be in awake and drowsy states during this EEG. Resting awake background rhythm consisted of well-formed posterior dominant rhythm with anterior/posterior gradient comprising of 11 Hz alpha activity measuring 15-40 microvolts in amplitude which was symmetric and reactive to eye opening. Attenuation of posterior dominant rhythm was seen during transition into drowsiness. Stage I sleep was reviewed and was symmetric bilaterally. Anteriorly low voltage and mixed frequency activity was noted. EKG revealed normal sinus rhythm. Hyperventilation and photic stimulation remained unremarkable. No focal, lateralizing or epileptiform abnormalities were seen. No relevant clinical activity was noted. CONCLUSION: This EEG in awake, drowsy states, stage I sleep is within normal limits.
== END ==
LOC: M SLEEP 08:02
PROVIDERS: ATTEND Physician Assistant
DX: R53.1 Weakness (principal)

== ENCOUNTER 2019-10-10 15:31 | Emergency (ER) | payer OTHER ==
[~2019-10-10] VITALS: Ht 170.2 cm; Wt 71.8 kg
[2019-10-10 16:04] LABS: BASO # 0.1 10^3/uL (0.0-0.2); BASO % 0.4 % (0.0-1.0); EOS # 0.3 10^3/uL (0.0-0.5); EOS % 2.1 % (0.0-3.0); HEMATOCRIT 37.4 % (36.0-47.0); HEMOGLOBIN 12.3 g/dl (12.0-15.5); LYMPH # 2.5 10^3/uL (1.5-5.0); LYMPH % 19.7 % (24.0-44.0); MEAN CORPUSCULAR HEMOGLOBIN 31.6 pg (27.0-33.0); MEAN CORPUSCULAR HGB CONC 32.9 g/dl (32.0-36.5); MEAN CORPUSCULAR VOLUME 96.1 fl (80.0-96.0); MONO # 0.6 10^3/uL (0.0-0.8); MONO % 4.6 % (0.0-5.0); NEUTROPHILS # 9.2 10^3/uL (1.5-8.5); NEUTROPHILS % 72.9 % (36.0-66.0); PLATELET COUNT, AUTOMATED 276 10^3/uL (150-450); RED BLOOD COUNT 3.89 10^6/uL (4.00-5.40); WHITE BLOOD COUNT 12.6 10^3/uL (4.0-10.0)
[2019-10-10] MEDS ORDERED: ISOVUE-370 76% 100ML VIAL As Ordered ONE (16:13)
[2019-10-10 16:17] LABS: INR 1.13; PROTHROMBIN TIME 14.2 SECONDS (11.8-14.0)
[2019-10-10 16:18] LABS: PARTIAL THROMBOPLASTIN TIME 32.9 SECONDS (25.0-38.4)
--- NOTE | 2019-10-10 16:24 | REP ---
Clinical: Trauma. Bruising. Technique: AP and lateral views of the right tibia / fibula. Findings: Chronic changes at the ankle consistent with old injuries and relatively similar to 09/10/2012 examination. No acute fracture dislocation. No subcutaneous emphysema or foreign body. Impression: Old injuries involving the ankle. No acute fracture or dislocation appreciated. Electronically Signed by Paco Gifford MD 10/10/2019 04:16 P
--- NOTE | 2019-10-10 16:37 | REP ---
Clinical: Shortness of breath . Technique: Axial contrast enhanced images from the thoracic inlet to the upper abdomen using 75 ml Isovue 370 intravenous contrast material with multiplanar re-formations. Findings: Satisfactory enhancement of the pulmonary vasculature is achieved and no filling defects are identified to suggest pulmonary embolus. Further evaluation of the mediastinum demonstrates normal thoracic aorta, heart and pericardium. The bilateral lung sullivan are well aerated and clear without consolidation pleural effusion or pneumothorax. Tracheobronchial tree is patent. No nodule or mass lesion is identified. No adenopathy noted. Surrounding musculoskeletal structures intact Impression: No evidence for pulmonary embolus. No acute mediastinal or pleural parenchymal process. Electronically Signed by Paco Gifford MD 10/10/2019 04:28 P
[2019-10-10] MEDS ORDERED: CYCL5TAB (16:46)
--- NOTE | 2019-10-10 16:55 | REP ---
Clinical: Right lower extremity swelling and bruising . Technique: Knott scale and color Doppler evaluation of the right lower extremity using linear high frequency transducer. Findings: Ultrasound examination of the right lower extremity deep venous structures from the common femoral vein to the popliteal vein demonstrates normal compressibility flow and wave patterns in response to respiration and augmentation. There is no evidence for deep venous thrombosis. Impression: No evidence for deep venous thrombosis right lower extremity. Electronically Signed by Paco Gifford MD 10/10/2019 04:47 P
[2019-10-10 17:22] VITALS: O2SAT 97
[2019-10-10 17:25] VITALS: BP 108/61
--- NOTE | 2019-10-12 07:52 | ECGEPIP ---
[facility] - ED Test Date: 2019-10-10 Pat Name: SHANTELL HUTCHINSON Department: Room: - Gender: Female [place] [employer]: : 1975 Requested By: BREN ROSS Order Number: [id number] Reading MD: Angeles Figueroa Measurements Intervals Hegins Rate: 51 P: 48 NM: 141 QRS: 63 QRSD: 89 T: 46 QT: 410 QTc: 380 Interpretive Statements SINUS BRADYCARDIA NSTTW abnormalities similar to prior EKG 02/02/18 Electronically Signed on 10-12-2019 7:52:00 EDT by Angeles Figueroa
== END 2019-10-10 17:53 | disposition home or self-care (01) ==
LOC: M ED 15:31
DX: S80.11XA Contusion of right lower leg, initial encounter (principal); X58.XXXA Exposure to other specified factors, initial encounter; Y92.89 Other specified places as the place of occurrence of the external cause; R06.00 Dyspnea, unspecified; M54.5 Low back pain; K21.9 Gastro-esophageal reflux disease without esophagitis; Z98.84 Bariatric surgery status; Z79.899 Other long term (current) drug therapy; Z88.0 Allergy status to penicillin; F17.210 Nicotine dependence, cigarettes, uncomplicated
CPT/HCPCS: 36415; 36600; 71275; 73590; 80047; 82803; 84443; 85025; 85610; 85730; 93005; 93971; 99284; Q9967

== ENCOUNTER → 2021-05-01 | Outpatient (CLI) | payer OTHER ==
[~2021-05-01] MED LIST changes: +CYCL5TAB; +OMEP40CA4 PO; -OMEP40CA97 PO; +PANT40TA29 PO; -PANT40TA3 PO
== END ==
LOC: M LABSMTC 13:19
PROVIDERS: ATTEND Pediatrics
DX: Z11.52 Encounter for screening for COVID-19 (principal)

== ENCOUNTER 2021-12-18 03:06 | Emergency (ER) | payer OTHER ==
[~2021-12-18] VITALS: Ht 170.2 cm; Wt 63.6 kg
[2021-12-18 04:18] LABS: BASO % 0.4 % (0.0-1.0); EOS # 0.2 10^3/uL (0.0-0.5); HEMATOCRIT 35.4 % (36.0-47.0); HEMOGLOBIN 11.8 g/dl (12.0-15.5); LYMPH # 1.3 10^3/uL (1.5-5.0); LYMPH % 13.9 % (24.0-44.0); MEAN CORPUSCULAR HEMOGLOBIN 30.3 pg (27.0-33.0); MEAN CORPUSCULAR HGB CONC 33.3 g/dl (32.0-36.5); MONO # 0.5 10^3/uL (0.0-0.8); MONO % 5.3 % (2.0-8.0); NEUTROPHILS # 7.2 10^3/uL (1.5-8.5); NEUTROPHILS % 78.1 % (36.0-66.0); PLATELET COUNT, AUTOMATED 242 10^3/uL (150-450); RED BLOOD COUNT 3.89 10^6/uL (4.00-5.40); WHITE BLOOD COUNT 9.2 10^3/uL (4.0-10.0)
[2021-12-18 04:44] LABS: ALBUMIN 3.7 GM/DL (3.2-5.2); ALT/SGPT 14 U/L (12-78); AMYLASE 50 U/L (25-115); BILIRUBIN,DIRECT 0.1 MG/DL (0.0-0.2); BILIRUBIN,TOTAL 0.4 MG/DL (0.2-1.0); BLOOD UREA NITROGEN 6 MG/DL (7-18); CALCIUM LEVEL 9.1 MG/DL (8.5-10.1); CARBON DIOXIDE LEVEL 23 MEQ/L (21-32); CHLORIDE LEVEL 109 MEQ/L (98-107); CREATININE FOR GFR 0.61 MG/DL (0.55-1.30); GLOMERULAR FILTRATION RATE > 60.0 (>58); GLUCOSE, FASTING 108 MG/DL (70-100); LIPASE 86 U/L (73-393); SODIUM LEVEL 137 MEQ/L (136-145); TOTAL PROTEIN 6.8 GM/DL (6.4-8.2)
[2021-12-18 05:23] LABS: INR 0.98; PROTHROMBIN TIME 13.4 SECONDS (12.7-14.5)
[2021-12-18 05:56] LABS: CK-MB VALUE MASS 1.2 NG/ML (<3.6); MB/CK RELATIVE INDEX 1.69 (< OR =4)
[2021-12-18] MEDS ORDERED: GI COCKTAIL 50ML BTL(HYOSCYAMINE/MAALOX/LIDOCAINE VISCOUS)(1:3:1) PO ONE (06:10)
[2021-12-18] MEDS ORDERED: NS 1,000 ML IV ONE (07:15)
[2021-12-18] MEDS ORDERED: PANTOPRAZOLE 40MG VIAL IV ONE (07:15)
[2021-12-18] MEDS ORDERED: ISOVUE-370 76% 100ML VIAL As Ordered ONE (07:23)
[2021-12-18 08:30] VITALS: BP 115/63
[2021-12-18] MEDS ORDERED: PROT1TAB2 PO (08:41)
== END 2021-12-18 08:54 | disposition home or self-care (01) ==
LOC: M ED 03:06
DX: K29.00 Acute gastritis without bleeding (principal); I31.3 Pericardial effusion (noninflammatory); Z98.84 Bariatric surgery status; K42.9 Umbilical hernia without obstruction or gangrene; Z97.5 Presence of (intrauterine) contraceptive device; Z88.0 Allergy status to penicillin; F17.290 Nicotine dependence, other tobacco product, uncomplicated
CPT/HCPCS: 71046; 71275; 74177; 80053; 81000; 82150; 82550; 82553; 83690; 85025; 85610; 93005; 96361; 96374; 99284; C9113; Q9967

== ENCOUNTER → 2022-03-28 | Outpatient (CLI) | payer OTHER ==
[~2022-03-28] MED LIST changes: +ERGO500029 PO; +FERR325T19 PO; +PROT1TAB2 PO
== END ==
LOC: M LABSMTC 09:37
PROVIDERS: ATTEND Anesthesiology
DX: Z01.818 Encounter for other preprocedural examination (principal)

== ENCOUNTER 2022-03-29 10:53 | Day surgery (SDC) | payer OTHER ==
[~2022-03-29] VITALS: Ht 170.2 cm; Wt 74.4 kg
[~2022-03-29 10:53] MED LIST changes: +NS 1,000 ML IV ONE
[2022-03-29] MEDS ORDERED: propofoL 200 MG/20 ML VIAL As Ordered ONE (12:33)
[2022-03-29] MEDS ORDERED: GLYCOPYRROLATE INJ 0.2 MG/ML 2 ML VIAL As Ordered ONE (12:33)
[2022-03-29] MEDS ORDERED: LIDOCAINE 2% 100MG/5ML SDV (FOR ANES.) As Ordered ONE (12:33)
[2022-03-29 13:00] VITALS: BP 111/54
== END 2022-03-29 13:17 | disposition home or self-care (01) ==
LOC: M OPP 10:53
PROVIDERS: ATTEND Surgery
DX: D12.6 Benign neoplasm of colon, unspecified (principal); K57.30 Diverticulosis of large intestine without perforation or abscess without bleeding; R19.4 Change in bowel habit; Z98.0 Intestinal bypass and anastomosis status; R12 Heartburn; Z80.0 Family history of malignant neoplasm of digestive organs; F17.200 Nicotine dependence, unspecified, uncomplicated; E55.9 Vitamin D deficiency, unspecified; K22.70 Barrett's esophagus without dysplasia; K31.9 Disease of stomach and duodenum, unspecified; Z88.0 Allergy status to penicillin

== ENCOUNTER → 2022-05-17 | Outpatient (CLI) | payer OTHER ==
[~2022-05-17] MED LIST changes: -NS 1,000 ML IV ONE
[2022-05-17 14:24] LABS: BASO # 0.1 10^3/uL (0.0-0.2); BASO % 0.5 % (0.0-1.0); EOS # 0.4 10^3/uL (0.0-0.5); EOS % 3.2 % (0.0-3.0); HEMATOCRIT 33.2 % (36.0-47.0); HEMOGLOBIN 10.5 g/dl (12.0-15.5); LYMPH # 1.9 10^3/uL (1.5-5.0); LYMPH % 17.5 % (24.0-44.0); MEAN CORPUSCULAR HEMOGLOBIN 30.3 pg (27.0-33.0); MEAN CORPUSCULAR HGB CONC 31.6 g/dl (32.0-36.5); MEAN CORPUSCULAR VOLUME 95.7 fl (80.0-96.0); MONO # 0.6 10^3/uL (0.0-0.8); MONO % 5.3 % (2.0-8.0); NEUTROPHILS % 73.1 % (36.0-66.0); PLATELET COUNT, AUTOMATED 304 10^3/uL (150-450); RED BLOOD COUNT 3.47 10^6/uL (4.00-5.40); WHITE BLOOD COUNT 10.9 10^3/uL (4.0-10.0)
[2022-05-17 14:57] LABS: THYROID STIMULATING HORMONE 0.973 uIU/ML (0.55-4.78); TOTAL 25(OH) VITAMIN D 19.3 NG/ML (20.0-100.0)
[2022-05-17 15:00] LABS: FOLLICLE STIMULATING HORMONE 6.6 mIU/ML; LUTEINIZING HORMONE 5.9 mIU/ML
[2022-05-17 16:43] LABS: VITAMIN B12 LEVEL 210 PG/ML (211-911)
[2022-05-17 17:23] LABS: IRON (FE) 100 UG/DL (50-170); PERCENT SATURATION 23.4 % (13.2-45.0); TOTAL IRON BINDING CAPACITY 428 UG/DL (250-425)
[2022-05-18 00:07] LABS: ALBUMIN 3.6 G/DL (3.2-5.2); ALKALINE PHOSPHATASE 75 U/L (46-116); ALT/SGPT 16 U/L (7.0-40); AST/SGOT 21 U/L (<34); BILIRUBIN,TOTAL 0.3 MG/DL (0.3-1.2); BLOOD UREA NITROGEN 12 MG/DL (9-23); CARBON DIOXIDE LEVEL 25 MMOL/L (20-31); CHLORIDE LEVEL 107 MMOL/L (98-107); CHOLESTEROL LEVEL 183 MG/DL (<200); CHOLESTEROL RISK RATIO 2.57 (<5); CREATININE FOR GFR 0.74 MG/DL (0.55-1.30); GLOMERULAR FILTRATION RATE > 60.0 (>58); GLUCOSE, FASTING 78 MG/DL (60-100); LDL CHOLESTEROL 81.6 MG/DL (<100); NON-HDL-C 112 MG/DL; POTASSIUM SERUM 4.5 MMOL/L (3.5-5.1); SODIUM LEVEL 139 MMOL/L (136-145); TOTAL PROTEIN 6.4 G/DL (5.7-8.2); TRIGLYCERIDES LEVEL 152 MG/DL (<150)
[2022-05-18 00:55] LABS: FOLATE 4.4 NG/ML (>5.4)
== END ==
LOC: M PLALAB 10:15
PROVIDERS: ATTEND Physician Assistant
DX: D50.8 Other iron deficiency anemias (principal); Z98.84 Bariatric surgery status; N92.6 Irregular menstruation, unspecified

== ENCOUNTER 2023-09-15 11:13 | Emergency (ER) | payer OTHER ==
[~2023-09-15] VITALS: Ht 170.2 cm; Wt 79.5 kg
[~2023-09-15 11:13] MED LIST changes: +DICY-61 PO; -DICY10CA13 PO; -K-TA10TA2 PO; -MISO200T56 PO; +MISO200T83 PO; +POTA-165 PO
[2023-09-15] MEDS ORDERED: ISOVUE-370 76% 100ML VIAL As Ordered ONE (11:47)
[2023-09-15 11:50] LABS: BASO # 0.1 10^3/uL (0.0-0.2); BASO % 0.5 % (0.0-1.0); EOS # 0.2 10^3/uL (0.0-0.5); EOS % 1.5 % (0.0-3.0); HEMATOCRIT 32.6 % (36.0-47.0); HEMOGLOBIN 10.4 g/dl (12.0-15.5); LYMPH # 1.7 10^3/uL (1.5-5.0); LYMPH % 17.8 % (24.0-44.0); MEAN CORPUSCULAR HEMOGLOBIN 28.7 pg (27.0-33.0); MEAN CORPUSCULAR HGB CONC 31.9 g/dl (32.0-36.5); MEAN CORPUSCULAR VOLUME 89.8 fl (80.0-96.0); MONO # 0.5 10^3/uL (0.0-0.8); MONO % 5.5 % (2.0-8.0); NEUTROPHILS # 7.2 10^3/uL (1.5-8.5); NEUTROPHILS % 74.3 % (36.0-66.0); PLATELET COUNT, AUTOMATED 271 10^3/uL (150-450); RED BLOOD COUNT 3.63 10^6/uL (4.00-5.40); WHITE BLOOD COUNT 9.7 10^3/uL (4.0-10.0)
[2023-09-15 12:06] LABS: INR 1.1; PROTHROMBIN TIME 13.8 SECONDS (12.5-14.5)
[2023-09-15 12:24] LABS: LIPASE 34 U/L (12-53)
[2023-09-15 12:26] LABS: ALBUMIN 3.4 G/DL (3.2-5.2); ALKALINE PHOSPHATASE 103 U/L (46-116); ALT/SGPT 14 U/L (7.0-40); AST/SGOT 19 U/L (<34); BILIRUBIN,DIRECT 0.1 MG/DL (<0.4); BILIRUBIN,TOTAL 0.4 MG/DL (0.3-1.2); BLOOD UREA NITROGEN 7 MG/DL (9-23); CALCIUM LEVEL 9.2 MG/DL (8.5-10.1); CARBON DIOXIDE LEVEL 24 MMOL/L (20-31); CHLORIDE LEVEL 108 MMOL/L (98-107); CREATININE FOR GFR 0.71 MG/DL (0.55-1.30); GLOMERULAR FILTRATION RATE > 60.0 (>58); GLUCOSE, FASTING 87 MG/DL (60-100); POTASSIUM SERUM 4.2 MMOL/L (3.5-5.1); SODIUM LEVEL 139 MMOL/L (136-145); TOTAL PROTEIN 6.5 G/DL (5.7-8.2)
[2023-09-15] MEDS: MECLIZINE 25 MG TABLET PO ONE (12:49)
[2023-09-15] MEDS ORDERED: BENZ200C70 PO (13:54)
[2023-09-15] MEDS ORDERED: HOME MED LIST COMPLETE! XX SCH (13:55)
[2023-09-15] MEDS ORDERED: MECL-209 PO (14:03)
[2023-09-15 14:28] VITALS: BP 146/68; TEMP 97.8; O2SAT 100
== END 2023-09-15 14:36 | disposition home or self-care (01) ==
LOC: M ED 11:13
DX: H81.4 Vertigo of central origin (principal); K21.9 Gastro-esophageal reflux disease without esophagitis; G43.909 Migraine, unspecified, not intractable, without status migrainosus; F17.200 Nicotine dependence, unspecified, uncomplicated; Z88.0 Allergy status to penicillin; Z79.899 Other long term (current) drug therapy
CPT/HCPCS: 36415; 70450; 70496; 70498; 70544; 70551; 71045; 80047; 80048; 80076; 83690; 85025; 85610; 85730; 93005; 93041; 94760; 99285; Q9967

== ENCOUNTER 2024-04-08 21:28 | Emergency (ER) | payer OTHER ==
[~2024-04-08] VITALS: Ht 170.2 cm; Wt 79.5 kg
[~2024-04-08 21:28] MED LIST changes: +BENZ200C70 PO; -CYCL5TAB; +CYCL5TAB4; +MECL-209 PO
[2024-04-08 22:12] LABS: HEMATOCRIT 37.1 % (36.0-47.0); HEMOGLOBIN 12.1 g/dl (12.0-15.5); MEAN CORPUSCULAR HEMOGLOBIN 29.2 pg (27.0-33.0); MEAN CORPUSCULAR HGB CONC 32.6 g/dl (32.0-36.5); MEAN CORPUSCULAR VOLUME 89.6 fl (80.0-96.0); PLATELET COUNT, AUTOMATED 210 10^3/uL (150-450); RED BLOOD COUNT 4.14 10^6/uL (4.00-5.40); WHITE BLOOD COUNT 6.9 10^3/uL (4.0-10.0)
[2024-04-08 22:32] LABS: AMPHETAMINES LEVEL URINE NEGATIVE (NEGATIVE); BARBITURATES URINE NEGATIVE (NEGATIVE); BENZODIAZEPINES URINE NEGATIVE (NEGATIVE); CANNABINOIDS URINE NEGATIVE (NEGATIVE); COCAINE METABOLITE URINE NEGATIVE (NEGATIVE); METHADONE URINE NEGATIVE (NEGATIVE); OPIATES URINE NEGATIVE (NEGATIVE); PHENCYCLIDINE URINE NEGATIVE (NEGATIVE)
[2024-04-08 22:35] LABS: SALICYLATE LEVEL < 3.0 MG/DL (<30)
[2024-04-08 22:52] LABS: HCG, SERUM QUALITATIVE NEGATIVE (NEGATIVE)
[2024-04-08 22:58] LABS: ALBUMIN 3.8 G/DL (3.2-5.2); ALKALINE PHOSPHATASE 124 U/L (35-104); ALT/SGPT 21 U/L (7.0-40); AST/SGOT 48 U/L (<34); BILIRUBIN,DIRECT 0.2 MG/DL (<0.4); BILIRUBIN,TOTAL 0.4 MG/DL (0.3-1.2); BLOOD UREA NITROGEN < 5 MG/DL (9-23); CALCIUM LEVEL 9.6 MG/DL (8.5-10.1); CARBON DIOXIDE LEVEL 22 MMOL/L (20-31); CHLORIDE LEVEL 106 MMOL/L (98-107); CREATININE FOR GFR 0.62 MG/DL (0.55-1.30); GLOMERULAR FILTRATION RATE > 60.0 (>58); GLUCOSE, FASTING 100 MG/DL (60-100); POTASSIUM SERUM 3.1 MMOL/L (3.5-5.1); SODIUM LEVEL 143 MMOL/L (136-145); THYROID STIMULATING HORMONE 5.336 uIU/ML (0.55-4.78); TOTAL PROTEIN 7.6 G/DL (5.7-8.2)
[2024-04-09] MEDS ORDERED: HOME MED LIST COMPLETE! XX SCH (09:05)
[2024-04-09] MEDS: POTASSIUM CHLORIDE 10MEQ SR TABLET PO ONE (10:00)
[2024-04-09 11:28] VITALS: BP 148/87; TEMP 97.4; O2SAT 99
== END 2024-04-09 11:31 | disposition home or self-care (01) ==
LOC: M ED 21:28
DX: F10.14 Alcohol abuse with alcohol-induced mood disorder (principal); Z88.0 Allergy status to penicillin